=== PATIENT | female | born 1985 | race Caucasian/White ===

== ENCOUNTER → 2019-11-06 12:08 | Observation (INO) ==
[2019-11-06 10:27] LABS: Bilirubin,Urine Negative (Negative); Blood,Urine Negative (Negative); Color,Urine Yellow (Yellow); Glucose,Urine (UA) Normal (Normal); Ketones,Urine Negative (Negative); Leukocyte Esterase,Urine Large (Negative); Nitrite,Urine Negative (Negative); PH,Urine 7.5 pH Units (5.0-8.0); Protein,Urine Negative (Neg-Trace); Specific Gravity,Urine 1.019 (1.010-1.025); Urobilinogen,Urine Normal (Normal)
[2019-11-06 10:29] LABS: Bacteria,Urine Few per hpf (None-Few); Hyaline Casts,Urine None Seen per lpf (None-Few); RBC,Urine 0-3 per hpf (0-3); Squamous Epithelial Cell,Urine Many per lpf (None-Few); WBC,Urine 30-50 per hpf (0-3)
[2019-11-06 10:33] LABS: Clarity,Urine Hazy (Clear)
== END | disposition home or self-care (01) ==
LOC: 1NENULAB
PROVIDERS: ADMIT Registered Nurse; ATTEND Registered Nurse

== ENCOUNTER 2019-12-30 22:34 | Inpatient (IN) ==
[2019-12-30 22:00] LABS: Basophils % 0.3 %; Eosinophils # 0.1 K/mcL (0.0-0.6); Eosinophils % 0.7 %; Hematocrit 35.7 % (35.3-44.9); Hemoglobin 12.3 g/dL (11.5-15.4); Immature Granulocytes % 1.4 % (0-4); Lymphocytes # 1.9 K/mcL (0.6-4.6); Lymphocytes % 13.5 %; Mean Corpuscular HGB Conc 34.5 g/dL (31.6-35.5); Mean Corpuscular Hemoglobin 31.3 pg (28.0-33.3); Mean Corpuscular Volume 90.8 fL (83.0-100.0); Mean Platelet Volume 10.5 fL (9.4-12.4); Monocytes % 7.1 %; Neutrophils # 10.6 K/mcL (1.6-8.9); Platelet Count 226 K/mcL (140-400); Red Blood Count 3.93 M/mcL (3.82-4.97); Red Cell Distribution Width 12.9 % (11.5-14.5); White Blood Count 13.8 K/mcL (4.3-11.1)
[2019-12-30 22:10] LABS: Amphetamine Screen,Urine Negative ng/mL (Cutoff=1000); Barbiturate Screen,Urine Negative ng/mL (Cutoff=200); Benzodiazepines Screen,Urine Negative ng/mL (Cutoff=200); Cannabinoid Screen,Urine Negative ng/mL (Cutoff = 50); Cocaine Screen,Urine Negative ng/mL (Cutoff= 300); Opiate Screen,Urine Negative ng/mL (Cutoff=300); Phencyclidine Screen,Urine Negative ng/mL (Cutoff=25)
[~2019-12-30 22:34] MED LIST: *HR* FentaNYL (PF) 100 MCG/2 ML VIAL IVP PRN; Azithromycin 500 MG in 0.9 % Sodium Chloride 250 ML IVPB ONE; Famotidine 20 MG/2 ML VIAL IVP PRN; Metoclopramide 10 MG/2 ML VIAL IVP PRN; Naloxone 0.4 MG/ML INJ IVP PRN; Ondansetron 4 MG/2 ML VIAL IVP PRN; Penicillin G Potassium 5,000,000 UNIT in 0.9 % Sodium Chloride Mini Bag 100 ML IVPB ONE; Ringers Solution, Lactated 1,000 ML IVC SCH
[2019-12-31] MEDS ORDERED: EPHEDrine 50 MG/ML VIAL IVP PRN (00:58)
[2019-12-31] MEDS ORDERED: Epidural Premix (fent/bupiv) 110 ML EP SCH (01:00)
[2019-12-31] MEDS: Penicillin G Potassium 2,500,000 UNIT in 0.9 % Sodium Chloride 100 ML IVPB SCH ×2 (01:48→06:14)
[2019-12-31] MEDS ORDERED: Oxytocin 20 units/ LR 1000 mL 20 UNIT/1,000 ML BAG IVC ONE (02:38)
[2019-12-31] MEDS ORDERED: Oxytocin 20 units/ LR 1000 mL 20 UNIT/1,000 ML BAG IVC SCH ×2 (02:45→10:44)
[2019-12-31] MEDS ORDERED: Lanolin 7 G OINT...G. TP PRN (10:44)
[2019-12-31] MEDS ORDERED: Rho Immune Globulin 1,500 UNIT SYRINGE IM PRN (10:44)
[2019-12-31] MEDS ORDERED: Benzocaine/Menthol 56 GM AEROSOL SPRAY TP PRN (10:44)
[2019-12-31] MEDS: Prenatal Vit/FA 1 EACH TABLET PO SCH (11:34)
[2019-12-31] MEDS: Ibuprofen 600 MG TABLET PO SCH ×2 (11:34→20:39)
[2019-12-31] MEDS: Acetaminophen 325 MG TABLET PO SCH (11:35)
[2020-01-01 04:12] LABS: Basophils # 0.1 K/mcL (0.0-0.2); Basophils % 0.5 %; Eosinophils # 0.2 K/mcL (0.0-0.6); Hematocrit 33.6 % (35.3-44.9); Hemoglobin 11.2 g/dL (11.5-15.4); Immature Granulocytes % 1.6 % (0-4); Lymphocytes # 2.3 K/mcL (0.6-4.6); Lymphocytes % 21.2 %; Mean Corpuscular HGB Conc 33.3 g/dL (31.6-35.5); Mean Corpuscular Hemoglobin 31.3 pg (28.0-33.3); Mean Corpuscular Volume 93.9 fL (83.0-100.0); Mean Platelet Volume 10.7 fL (9.4-12.4); Monocytes % 9.2 %; Neutrophils # 7.2 K/mcL (1.6-8.9); Platelet Count 187 K/mcL (140-400); Red Blood Count 3.58 M/mcL (3.82-4.97); Red Cell Distribution Width 13.3 % (11.5-14.5); Segmented Neutrophils % 65.5 %; White Blood Count 10.9 K/mcL (4.3-11.1)
[2020-01-01 07:49] VITALS: BP 116/77
[2020-01-01] MEDS: Acetaminophen 325 MG TABLET PO SCH (08:02)
[2020-01-01] MEDS: Prenatal Vit/FA 1 EACH TABLET PO SCH (08:02)
[2020-01-01] MEDS: Ibuprofen 600 MG TABLET PO SCH (08:03)
== END 2020-01-01 09:28 | disposition home or self-care (01) | DRG 807 ==
LOC: 1NENULAB → 1NENUOBS 12-31 10:13
PROVIDERS: ADMIT Obstetrics & Gynecology; ATTEND Obstetrics & Gynecology